=== PATIENT | male | born 1950 | race Caucasian/White ===

== ENCOUNTER 2021-09-25 17:28 | Day surgery (SDCO) | payer MEDICARE, OTHER ==
[~2021-09-25] VITALS: Ht 182.9 cm; Wt 79.8 kg
[2021-09-25 19:26] LABS: BASOPHIL 1.1 % (0-2); EOSINOPHIL 1.7 % (0-7); HCT 45.9 % (42.0-52.0); HGB 15.2 g/dl (13.2-18.0); LYMPHOCYTE 32.1 % (15-48); MCH 29.1 pg (25.0-31.0); MCHC 33.1 g/dL (32.0-36.0); MCV 87.8 fL (78.0-100.0); MONOCYTE 9.6 % (0-12); MPV 9.4 fL (6.0-9.5); NEUTROPHIL 55.2 % (41-80); NRBC 0; PLT 303 K/uL (150-400); RBC 5.23 M/uL (4.70-6.00); RDW 13.8 % (11.5-14.0); WBC 10.9 K/uL (4.0-10.5)
[2021-09-25 19:41] LABS: ALBUMIN 3.5 g/dL (3.4-5.0); BILIRUBIN - TOTAL 0.3 mg/dL (0.2-1.0); BUN/CREAT RATIO (CALC) 11.4 RATIO; CREATININE 1.14 mg/dL (0.67-1.17); GLOBULIN (CALCULATION) 4.2 g/dL; POTASSIUM 3.8 mmol/L (3.5-5.1); TOTAL PROTEIN 7.7 g/dL (6.4-8.2)
[2021-09-25 19:44] LABS: BILIRUBIN NEGATIVE (NEGATIVE); BLOOD TRACE-INTACT Ery/uL (NEGATIVE); CLARITY CLEAR (CLEAR); COLOR YELLOW (YELLOW); GLUCOSE (U) 3+ mg/dL (NORMAL); LEUKOCYTES 1+ Leu/uL (NEGATIVE); NITRITE NEGATIVE (NEGATIVE); PROTEIN TRACE (LOW) mg/dL (NEGATIVE); SPECIFIC GRAVITY <=1.005 (1.001-1.030); UROBILINOGEN 0.2 mg/dL (0.2-1.0)
[2021-09-25 19:50] LABS: BACTERIA 1+; URINARY WBC 20-50
[2021-09-26] MEDS ORDERED: ALLOPURINOL300 MG PO (01:30)
[2021-09-26] MEDS ORDERED: ASPIRIN EC81 MG PO (01:31)
[2021-09-26] MEDS ORDERED: BAQSIMI3 MG (01:36)
[2021-09-26] MEDS ORDERED: SYMBICORT 80-10.2 GM INH (01:41)
[2021-09-26] MEDS ORDERED: COREG 3.125M3.125 MG PO (01:47)
[2021-09-26] MEDS ORDERED: OMEPRAZOLE40 MG PO (01:50)
[2021-09-26] MEDS ORDERED: BENTYL10 MG PO (01:57)
[2021-09-26] MEDS ORDERED: COLACE100 MG PO (01:58)
[2021-09-26] MEDS ORDERED: JARDIANCE25 MG PO (02:00)
[2021-09-26] MEDS ORDERED: FLORINEF0.1 MG PO (02:01)
[2021-09-26] MEDS ORDERED: HUMALOG 75100 UNIT/M SC (02:03)
[2021-09-26] MEDS ORDERED: LINZESS72 MCG PO (02:06)
[2021-09-26] MEDS ORDERED: PROAMATINE5 MG PO (02:08)
[2021-09-26] MEDS ORDERED: NITROQUIK SL0.4 MG SL (02:09)
[2021-09-26] MEDS ORDERED: NITROGLYCERIN1 EAC1 TD (02:11)
[2021-09-26] MEDS ORDERED: ONDANSETRON ODT4 MG PO (02:12)
[2021-09-26] MEDS ORDERED: PERCOCET 5-3251 EACH PO (02:14)
[2021-09-26] MEDS ORDERED: RANEXA500 MG PO (02:15)
[2021-09-26] MEDS ORDERED: CRESTOR40 MG PO (02:17)
[2021-09-26] MEDS ORDERED: ZOLOFT100 MG PO ×2 (02:19→02:20)
[2021-09-26] MEDS ORDERED: FLOMAX 0.4 MG0.4 MG PO (02:22)
[2021-09-26 07:10] LABS: BASOPHIL 0.8 % (0-2); EOSINOPHIL 1.7 % (0-7); HCT 44.7 % (42.0-52.0); HGB 14.7 g/dl (13.2-18.0); LYMPHOCYTE 33.6 % (15-48); MCH 28.9 pg (25.0-31.0); MCHC 32.9 g/dL (32.0-36.0); MCV 87.8 fL (78.0-100.0); MONOCYTE 9.2 % (0-12); MPV 9.3 fL (6.0-9.5); NEUTROPHIL 54.5 % (41-80); NRBC 0; PLT 259 K/uL (150-400); RBC 5.09 M/uL (4.70-6.00); RDW 13.9 % (11.5-14.0); WBC 12.3 K/uL (4.0-10.5)
[2021-09-26 07:18] LABS: INR 1.11 (0.9-1.2); PROTHROMBIN TIME 13.7 SECONDS (11.8-13.4)
[2021-09-26 07:34] LABS: ALBUMIN 3.3 g/dL (3.4-5.0); BILIRUBIN - TOTAL 0.4 mg/dL (0.2-1.0); BUN/CREAT RATIO (CALC) 13.4 RATIO; CREATININE 1.42 mg/dL (0.67-1.17); GLOBULIN (CALCULATION) 3.8 g/dL; POTASSIUM 4.3 mmol/L (3.5-5.1); TOTAL PROTEIN 7.1 g/dL (6.4-8.2)
--- NOTE | 2021-09-26 11:08 | NUR ---
PER DR. LUNA PT IS OBS APPROPRIATE.
[2021-09-28 05:42] LABS: BASOPHIL 0.7 % (0-2); HCT 40.9 % (42.0-52.0); HGB 13.5 g/dl (13.2-18.0); LYMPHOCYTE 18.6 % (15-48); MCV 87.8 fL (78.0-100.0); MONOCYTE 10.7 % (0-12); MPV 8.9 fL (6.0-9.5); NEUTROPHIL 67.7 % (41-80); NRBC 0; PLT 237 K/uL (150-400); RBC 4.66 M/uL (4.70-6.00); RDW 13.8 % (11.5-14.0); WBC 10.4 K/uL (4.0-10.5)
[2021-09-28 06:02] LABS: ALBUMIN 3.2 g/dL (3.4-5.0); BILIRUBIN - TOTAL 0.6 mg/dL (0.2-1.0); BUN/CREAT RATIO (CALC) 10.9 RATIO; CREATININE 1.19 mg/dL (0.67-1.17); GLOBULIN (CALCULATION) 3.1 g/dL; POTASSIUM 4.5 mmol/L (3.5-5.1); TOTAL PROTEIN 6.3 g/dL (6.4-8.2)
[2021-09-28] MEDS ORDERED: PERCOCET 5-3251 EACH PO (10:56)
== END 2021-09-28 12:26 | disposition home or self-care (01) ==
LOC: FER 17:28 → EDBD 22:38 → FMS 22:38
PROVIDERS: Allergy & Immunology Allergy; Emergency Medicine; Nurse Practitioner; ADMIT Internal Medicine
DX: K81.1 Chronic cholecystitis (principal); I25.2 Old myocardial infarction; I25.10 Atherosclerotic heart disease of native coronary artery without angina pectoris; E27.40 Unspecified adrenocortical insufficiency; N30.00 Acute cystitis without hematuria; N17.9 Acute kidney failure, unspecified; F17.200 Nicotine dependence, unspecified, uncomplicated; J44.9 Chronic obstructive pulmonary disease, unspecified; E10.22 Type 1 diabetes mellitus with diabetic chronic kidney disease; N18.9 Chronic kidney disease, unspecified; M10.9 Gout, unspecified; N40.0 Benign prostatic hyperplasia without lower urinary tract symptoms; E78.5 Hyperlipidemia, unspecified; Z96.41 Presence of insulin pump (external) (internal); Z95.5 Presence of coronary angioplasty implant and graft; Z96.89 Presence of other specified functional implants; Z88.5 Allergy status to narcotic agent; Z79.82 Long term (current) use of aspirin; Z20.822 Contact with and (suspected) exposure to COVID-19
CPT/HCPCS: 36415; 71045; 78227; 80053; 81001; 83605; 83690; 84145; 84484; 85025; 85379; 85610; 87040; 87088; 93005; 94640; A9537; G0378; J0696; J1100; J1170; J1650; J1815; J1885; J2270; J2370; J2405; J2543; J2704; J2710; J2805; J3010; J7120; Q9967; U0002